=== PATIENT | male | born 1955 | race Caucasian/White ===

== ENCOUNTER 2017-06-26 17:37 | Inpatient (IN) | payer MEDICAID ==
[~2017-06-26] VITALS: Ht 167.6 cm; Wt 63.0 kg
[~2017-06-26 17:37] MED LIST: ACETAMINOPHEN-1 EAC1 PO; LISINOPRIL10 MG PO; PERCOCET 5-3251 EACH PO; ROBAXIN500 MG PO; TOPROL XL100 MG PO
[2017-06-26 17:53] VITALS: BP 145/85
[2017-06-26] MEDS ORDERED: HYDROCHLOROTHIA25 M2 (20:53)
[2017-06-26 20:54] LABS: URINE BILIRUBIN NEGATIVE (Negative); URINE BLOOD NEGATIVE (Negative); URINE CLARITY CLEAR; URINE COLOR YELLOW; URINE GLUCOSE-RANDOM NEGATIVE (Negative); URINE KETONES NEGATIVE (Negative); URINE LEUKOCYTES-REFLEX NEGATIVE (Negative); URINE NITRITE-REFLEX NEGATIVE (Negative); URINE PROTEIN NEGATIVE (Negative); URINE SPECIFIC GRAVITY 1.015 (1.005-1.030); URINE UROBILINOGEN 0.2 E.U./dl (0.2-1.0)
[2017-06-26] MEDS ORDERED: ASPIR 8181 M1 PO (20:55)
[2017-06-26 21:10] LABS: ABSOLUTE BASOPHILS 0.1 thou/uL (0.0-0.2); ABSOLUTE EOSINOPHILS 0.2 thou/uL (0.0-0.7); ABSOLUTE LYMPHOCYTES 1.9 thou/uL (0.8-5.3); ABSOLUTE NEUTROPHILS 9.8 thou/uL (1.6-8.1); EOSINOPHILS 1.4 %; HEMATOCRIT 40.6 % (42.0-52.0); LYMPHOCYTES 14.3 %; MCH 30.6 pg (26.0-34.0); MCHC 34.6 g/dL (28.0-37.0); MCV 88.5 fL (80.0-100.0); NUCLEATED RBCS 0 /100WBC; PLATELET COUNT* 299 thou/uL (150-400); POLYS 75.3 %; RBC 4.59 mil/uL (4.50-6.00); RDW-CV 13.2 % (10.5-14.5)
[2017-06-26 21:23] LABS: ANION GAP 12 mmol/L (7-16); BUN 12 mg/dL (7-18); CALCIUM 8.8 mg/dL (8.5-10.1); CHLORIDE 90 mmol/L (98-107); CO2 26 mmol/L (21-32); CREATININE 0.6 mg/dL (0.6-1.3); GLUCOSE 107 mg/dL (70-99); POTASSIUM 3.9 mmol/L (3.5-5.1); SODIUM 128 mmol/L (136-145)
[2017-06-26 21:30] LABS: ALBUMIN 3.7 g/dL (3.4-5.0); ALKALINE PHOSPHATASE 77 U/L (46-116); SGOT 25 U/L (15-37); SGPT 16 U/L (30-65); TOTAL BILIRUBIN 0.4 mg/dL (<0.1-1.0); TOTAL PROTEIN 7.9 g/dL (6.4-8.2); TROPONIN-I LEVEL <0.06 ng/mL (<0.06)
[2017-06-26 21:50] LABS: AMP/METHAMP Negative (Negative); BARBITURATES Negative (Negative); BENZODIAZEPINES Negative (Negative); COCAINE Negative (Negative); METHADONE Negative (Negative); OPIATES Negative (Negative); PCP Negative (Negative); THC Negative (Negative)
[2017-06-26 23:03] VITALS: BP 153/85
[2017-06-27 04:30] VITALS: BP 124/66
[2017-06-27 05:58] LABS: PROTIME 10.2 Seconds (9.20-11.50)
[2017-06-27 06:07] LABS: MAGNESIUM 1.9 mg/dL (1.8-2.4); PHOSPHORUS* 3.1 mg/dL (2.5-4.9)
[2017-06-27 07:56] LABS: LIPASE 15847 U/L (73-393)
[2017-06-27 08:00] VITALS: BP 147/75
[2017-06-27 11:50] LABS: ALBUMIN 3.5 g/dL (3.4-5.0); CALCIUM 8.3 mg/dL (8.5-10.1); CREATININE 0.7 mg/dL (0.6-1.3); TOTAL BILIRUBIN 0.5 mg/dL (<0.1-1.0); TOTAL PROTEIN 6.7 g/dL (6.4-8.2)
[2017-06-27 16:07] VITALS: BP 151/77
[2017-06-27 19:55] VITALS: BP 149/74
[2017-06-28] VITALS: BP 156/86
[2017-06-28 05:22] LABS: HEMATOCRIT 40.1 % (42.0-52.0); HEMOGLOBIN 13.5 gm/dL (14.0-18.0); MCHC 33.7 g/dL (28.0-37.0); MCV 88.9 fL (80.0-100.0); MPV 7.5 fl. (7.2-11.1); RBC 4.51 mil/uL (4.50-6.00); RDW-CV 13.2 % (10.5-14.5); WBC 7.6 thou/uL (4.0-11.0)
[2017-06-28 05:59] LABS: CALCIUM 8.2 mg/dL (8.5-10.1); CREATININE 0.6 mg/dL (0.6-1.3); MAGNESIUM 1.6 mg/dL (1.8-2.4); POTASSIUM 3.4 mmol/L (3.5-5.1); TOTAL BILIRUBIN 0.4 mg/dL (<0.1-1.0); TOTAL PROTEIN 6.7 g/dL (6.4-8.2)
--- NOTE | 2017-06-28 06:17 | EKG ---
[place] [address] ELECTROCARDIOGRAM REPORT Name: HINALUANA Room: [address] ADM IN [facility].#: [id number] Admission: 06/26/17 Attend Phys: Clifton Romero MD Discharge: Date of : 55 Report #: [id number] THIS REPORT FOR: //name// [facility] ED Test Date: 2017-06-26 Test Time: 20:51:48 Pat Name: LUANA SANTAMARIA Department: Room: [facility] Gender: M Rig Mechanic: MS : 1955 Requested By: Kay Farr Order Number: [id number] MD: Vernon Calderon Measurements Intervals [place] Rate: 69 P: 91 CA: 204 QRS: 35 QRSD: 99 T: 47 QT: 395 QTc: 423 Interpretive Statements Sinus rhythm Probable left ventricular hypertrophy Compared to ECG 06/09/2010 20:00:13 Sinus bradycardia no longer present Electronically Signed On 06-28-2017 6:17:06 RENAL MEDICINE PHYSICIAN by Vernon Calderon [email or web address] <ELECTRONICALLY SIGNED> By: Vernon Calderon MD, [facility] 06/28/17616 50 50 Vernon Calderon MD, FAC /EPI
[2017-06-28 08:00] VITALS: BP 156/66
[2017-06-28 17:15] VITALS: BP 154/86
[2017-06-28 21:00] VITALS: BP 147/72
[2017-06-29 04:49] LABS: ALBUMIN 3.3 g/dL (3.4-5.0); CALCIUM 8.6 mg/dL (8.5-10.1); CREATININE 0.6 mg/dL (0.6-1.3); MAGNESIUM 1.8 mg/dL (1.8-2.4); TOTAL BILIRUBIN 0.4 mg/dL (<0.1-1.0); TOTAL PROTEIN 6.6 g/dL (6.4-8.2)
[2017-06-29] MEDS ORDERED: NORCO 5-325 TA1 EACH PO (15:48)
[2017-06-29 15:50] VITALS: BP 158/77
--- NOTE | 2017-07-20 14:50 | CON ---
[address] [address] CONSULTATION Name: LUANA SANTAMARIA SR Room: [address]R.#: [id number] Admission: 06/26/17 Attend Phys: Clifton Romero MD Discharge: 06/29/17 Date of : 55 Report #: [id number] THIS REPORT FOR: //name// CC: Clifton Romero [facility] physician/PCP [facility] DICTATED BY: Pepper NORTON DATE OF SERVICE: 06/27/2017 Please note at the time of this dictation, the patient was seen and physically examined by myself. REASON FOR CONSULTATION: Epigastric pain and pancreatic mass. HISTORY OF PRESENT ILLNESS: This is a 61-year-old male who describes that over the last several days, his epigastric pain has become significantly worse, radiating down to his umbilicus and going into his back. He states it seems to worsen with eating, but he denies any nausea or vomiting, fever or chills or any weight loss and his appetite has been good. He states it has been a dull for a couple of weeks, but just intensified here over the last several days. The patient has never seen a meter changes records clerk for any EGD or colonoscopy in the past. He states his bowels move daily, soft and formed with no evidence of any bright red blood or any melena. ALLERGIES: PENICILLIN. HOME MEDICATIONS: Include lisinopril, Toprol, hydrochlorothiazide and aspirin. PAST MEDICAL HISTORY: Significant for hypertension, chronic low back pain with some radiculopathy. PAST SURGICAL HISTORY: He had a cyst removed in childhood. FAMILY HISTORY: Significant for breast cancer and uterine cancer in his sisters. SOCIAL HISTORY: Denies any recreational drug use, tobacco use. He continues to smoke a pack per day. Alcohol use for many years, used to be heavy where he would drink a case on a daily basis for 15 or so more years. He is now just 6 packs, possibly on the weekends and has been like that for several years. REVIEW OF SYSTEMS: Twelve-point review of systems is essentially negative except what [place] [address] CONSULTATION Name: HINALUANA SR Room: [address]#: [id number] Admission: 06/26/17 Attend Phys: Clifton Romero MD Discharge: 06/29/17 Date of : 55 Report #: [id number] PHYSICAL EXAMINATION: VITAL SIGNS: Temperature 36.7, pulse 61, respirations 16, blood pressure 124/66. HEART: Regular rate and rhythm. LUNGS: Clear. ABDOMEN: Soft, positive bowel sounds in all 4 quadrants with tenderness noted in the epigastric area. LABORATORY DATA: Hemoglobin is 14, hematocrit 40.6, white count is 13, platelets 299, lipase is 15,847. Sodium 138, potassium 3.9, chloride 90, CO2 26, BUN is 12, creatinine 0.6, GFR is 137 and glucose is 107. LFTs are completely normal. CT of the abdomen and pelvis showed a 24 x 22 mm hypodensity lesion in the pancreatic head with some small lymph nodes surrounding that were noted. PT was 10.1 and INR was 1. IMPRESSION: 1. Epigastric pain. 2. Pancreatic lesion. 3. Leukocytosis. 4. History of alcohol abuse. 5. Family history of breast and uterine cancer in his sisters. PLAN: 1. Keep his IV fluids at 250 mL an hour. 2. Clear liquid diet. 3. The patient will need to get set up for an outpatient EUS as soon as possible. 4. The patient will need outpatient colonoscopy that he can schedule at [facility] or with us as an outpatient once this has been fully evaluated. Thank you for allowing us to participate in this patient's care. Please do not hesitate to call with any questions in regard to this consult. I have personally seen and examined the patient and reviewed labs and imaging studies. The patient with acute epigastric pain which prompted him to come to hospital. The patient found to have evidence of pancreatitis as his lipase was 16,000. He also had a 2 x 2 cm lesion at the head of the pancreas. His liver enzymes are normal as his bilirubin is normal as well. He denies any history of weight loss prior to this episode. We will go ahead and continue IV hydration and monitor his lipase. He is currently tolerating liquid diet; therefore, we will continue it for now. If his lipase dropped tomorrow, we will consider advancing his diet to low fat. Meanwhile, since he has long history of alcoholism, we will ask him to avoid alcohol consumption after discharge. We will also recommend endoscopic ultrasound to further investigate the pancreatic [address] [address] CONSULTATION Name: LUANA SANTAMARIA SR Room: [address] IN M.R.#: [id number] Admission: 06/26/17 Attend Phys: Clifton Romero MD Discharge: 06/29/17 Date of : 55 Report #: [id number] head lesion. Meanwhile, we will check for CA 19-9 and also follow up lipase level. <ELECTRONICALLY SIGNED> By: Katlyn Hopper MD 07/20/17 1450 1202 [id number] Hopper MD /nt
--- NOTE | 2017-07-20 14:50 | CON ---
[address] [address] CONSULTATION Name: LUANA SANTAMARIA SR Room: [address] IN M.R.#: [id number] Admission: 06/26/17 Attend Phys: Clifton Romero MD Discharge: 06/29/17 Date of : 55 Report #: [id number] THIS REPORT FOR: //name// CC: Clifton Romero [facility] physician/PCP DATE OF SERVICE: 06/27/2017 ADDENDUM I have personally seen and examined the patient and reviewed labs and imaging studies. The patient with acute epigastric pain which prompted him to come to hospital. The patient found to have evidence of pancreatitis as his lipase was 16,000. He also had a 2 x 2 cm lesion at the head of the pancreas. His liver enzymes are normal as his bilirubin is normal as well. He denies any history of weight loss prior to this episode. We will go ahead and continue IV hydration and monitor his lipase. He is currently tolerating liquid diet; therefore, we will continue it for now. If his lipase dropped tomorrow, we will consider advancing his diet to low fat. Meanwhile, since he has long history of alcoholism, we will ask him to avoid alcohol consumption after discharge. We will also recommend endoscopic ultrasound to further investigate the pancreatic head lesion. Meanwhile, we will check for CA 19-9 and also follow up lipase level. <ELECTRONICALLY SIGNED> By: Katlyn Hopper MD 07/20/17 1450 [id number] [id number] Hopper MD /anais
== END 2017-06-29 16:39 | disposition home or self-care (01) | DRG 439 ==
LOC: M.ERS 17:37 → M.TBA-ER 21:37 → M.2W 21:37 → M.3W 06-28 09:03
PROVIDERS: Internal Medicine; Physician Assistant; ADMIT Internal Medicine
DX: K85.90 Acute pancreatitis without necrosis or infection, unspecified (principal); E87.1 Hypo-osmolality and hyponatremia; I10 Essential (primary) hypertension; F17.210 Nicotine dependence, cigarettes, uncomplicated; G89.29 Other chronic pain; M54.5 Low back pain; Z80.3 Family history of malignant neoplasm of breast; Z80.59 Family history of malignant neoplasm of other urinary tract organ; K86.9 Disease of pancreas, unspecified; D72.829 Elevated white blood cell count, unspecified; E86.9 Volume depletion, unspecified; Z79.899 Other long term (current) drug therapy; Z88.0 Allergy status to penicillin